=== PATIENT | female | born 1935 | race African-American/Black ===

== ENCOUNTER 2018-03-19 17:32 | Inpatient (IN) | payer MEDICARE, MEDICAID ==
[~2018-03-19] VITALS: Ht 165.1 cm; Wt 74.8 kg
[~2018-03-19 17:32] MED LIST: ATOR10TA PO; MECL25TA3 PO
[2018-03-19] MEDS ORDERED: SODIUM CHLORIDE 0.9% 1,000 ML IV ONE (18:15)
[2018-03-19 18:52] LABS: BASOPHILS % 0.8 % (0.0-2.0); EOSINOPHILS % 1.5 % (0.0-5.0); HEMATOCRIT. 35.7 % (36.0-48.0); LYMPHOCYTES % 20.4 % (20.0-50.0); MEAN CORPUSCULAR VOLUME 89.2 fL (81.0-99.0); MONOCYTES % 6.6 % (2.0-8.0); NEUTROPHILS % 70.7 % (40.0-76.0); PLATELET 200 x1000/uL (130-400); RED CELL DISTRIBUTION WIDTH 14.2 % (11.6-14.6)
[2018-03-19 18:57] LABS: CHLORIDE 109 mEq/L (98-107)
[2018-03-19 18:59] LABS: PROTHROMBIN TIME 10.1 sec (9.1-11.1)
[2018-03-19 19:01] LABS: ETHANOL BLOOD < 10 mg/dL
[2018-03-19] MEDS ORDERED: CEFTRIAXONE 1 G PREMIX 50 ML IV ONE (19:15)
[2018-03-19] MEDS ORDERED: DIAZEPAM 5 MG TABLET PO ONE (19:15)
[2018-03-19] MEDS ORDERED: ACETAMINOPHEN 325MG TABLET PO ONE (19:15)
[2018-03-19 22:00] VITALS: BP 216/76
[2018-03-19] MEDS ORDERED: CEFTRIAXONE 1 G PREMIX 50 ML IV SCH (22:30)
[2018-03-19] MEDS ORDERED: CLONIDINE 0.1MG TABLET PO PRN (22:30)
[2018-03-19] MEDS ORDERED: ACETAMINOPHEN 325MG TABLET PO PRN (22:30)
[2018-03-19] MEDS: METOPROLOL TARTRATE 50MG TABLET PO SCH (22:57)
[2018-03-19] MEDS: AMLODIPINE 10MG TABLET PO SCH (22:58)
[2018-03-19] MEDS ORDERED: SODIUM CHLORIDE 0.9% 1,000 ML IV SCH (23:30)
[2018-03-20] VITALS: BP 172/67
[2018-03-20 00:07] VITALS: BP 172/67
[2018-03-20 04:00] VITALS: BP 125/62
[2018-03-20 08:00] VITALS: BP 117/60
[2018-03-20 08:17] LABS: EOSINOPHILS % 3.1 % (0.0-5.0); HEMATOCRIT. 31.5 % (36.0-48.0); HEMOGLOBIN. 10.6 g/dL (12.0-16.0); LYMPHOCYTES % 26.4 % (20.0-50.0); MEAN CORPUSCULAR HEMOGLOBIN 30.2 pg (28.0-32.0); MEAN CORPUSCULAR VOLUME 89.7 fL (81.0-99.0); MEAN PLATELET VOLUME 9.5 fl (7.4-10.4); MONOCYTES % 9.3 % (2.0-8.0); NEUTROPHILS % 60.2 % (40.0-76.0); PLATELET 174 x1000/uL (130-400); RED BLOOD CELL COUNT 3.51 mill/uL (4.2-5.4); RED CELL DISTRIBUTION WIDTH 14.1 % (11.6-14.6)
[2018-03-20] MEDS: METOPROLOL TARTRATE 50MG TABLET PO SCH (08:50)
[2018-03-20] MEDS: AMLODIPINE 10MG TABLET PO SCH (08:54)
[2018-03-20 09:06] LABS: CLARITY URINE CLOUDY (CLEAR); COLOR URINE YELLOW (YELLOW); KETONES URINE NEGATIVE (NEGATIVE); LEUKOCYTE ESTERASE URINE 2+ (NEGATIVE); NITRITE URINE NEGATIVE (NEGATIVE); OCCULT BLOOD URINE TRACE (NEGATIVE); PROTEIN URINE 3+ (NEGATIVE); SPECIFIC GRAVITY URINE 1.017 (1.005-1.030); UROBILINOGEN URINE 0.2 E.U./dL (0.2-1.0)
[2018-03-20 09:32] LABS: *AMPHETAMINES SCREEN URINE NEGATIVE (NEGATIVE)
[2018-03-20 09:33] LABS: *BARBITURATES SCREEN URINE NEGATIVE (NEGATIVE); *BENZODIAZEPINES SCREEN URINE NEGATIVE (NEGATIVE); *COCAINE SCREEN URINE NEGATIVE (NEGATIVE); METHADONE URINE SCREEN NEGATIVE (NEGATIVE); OPIATES URINE SCREEN NEGATIVE (NEGATIVE)
[2018-03-20 09:34] LABS: CANNABINOID URINE SCREEN NEGATIVE (NEGATIVE); PHENCYCLIDINE URINE SCREEN NEGATIVE (NEGATIVE)
[2018-03-20 12:00] VITALS: BP 135/53
[2018-03-20] MEDS ORDERED: ENOXAPARIN 30MG/0.3ML SYR SUBCUT SCH (13:00)
[2018-03-20 17:14] VITALS: BP 117/60
[2018-03-20] MEDS ORDERED: CEFTRIAXONE 1 G PREMIX 50 ML IV SCH (21:00)
== END 2018-03-20 18:38 | disposition home or self-care (01) | DRG 720 ==
LOC: ER 17:37 → ENRESERV 19:33 → 7WST 21:01
PROVIDERS: ADMIT Internal Medicine; ATTEND Internal Medicine
DX: A41.9 Sepsis, unspecified organism (principal); N17.9 Acute kidney failure, unspecified; E87.8 Other disorders of electrolyte and fluid balance, not elsewhere classified; I50.40 Unspecified combined systolic (congestive) and diastolic (congestive) heart failure; I11.0 Hypertensive heart disease with heart failure; I87.8 Other specified disorders of veins; N39.0 Urinary tract infection, site not specified; I16.1 Hypertensive emergency; J45.909 Unspecified asthma, uncomplicated; Z86.73 Personal history of transient ischemic attack (TIA), and cerebral infarction without residual deficits; Z90.710 Acquired absence of both cervix and uterus; Z90.49 Acquired absence of other specified parts of digestive tract
CPT/HCPCS: 36415; 71045; 80061; 80305; 83605; 83880; 87804; 93005; 93306; 93970; 96360; 96361; 97162; 99285; G0482; J0696; J7030